=== PATIENT | female | born 1995 | race Caucasian/White ===

== ENCOUNTER → 2020-08-06 14:40 | Outpatient (BNVA) | payer BC, SELFPAY | PROVIDERS: PCP Physician Assistant; Referring Provider Nurse Practitioner Family; Visit Provider Podiatrist Foot & Ankle Surgery | DX: S92.425A Nondisplaced fracture of distal phalanx of left great toe, initial encounter for closed fracture (principal); X58.XXXA Exposure to other specified factors, initial encounter | CPT/HCPCS: 73630 ==

== ENCOUNTER 2021-10-14 16:37 | Inpatient (IN) | payer BC, MEDICAID, SELFPAY ==
[2021-10-14] VITALS (60 sets, daily range): BP systolic 119–175; BP diastolic 57–92; PULSE 61–129; RESP 17–18; TEMP 38.4; O2SAT 99–100; BMI 31.8
[2021-10-14 15:18] LABS: Bacteria Urine 1+ /hpf; Bilirubin Urine Neg (Negative); Blood Urine Neg (Negative); Glucose Urine UA Norm (Normal); Ketones Urine Negative (Negative); Leukocyte Esterase Urine Negative (Negative); Mucus Urine 1+ /hpf; Nitrate Urine Negative (Negative); Protein Urine Neg (Negative); RBC Urine 0-4 /hpf (0-2); Specific Gravity, Urine 1.015 (1.005-1.030); Squamous Epithelial Cell Urine 0-4 /hpf (0-5); Urine Appearance Clear (CLEAR); Urine Color Yellow (Yellow); Urobilinogen Urine Norm (Negative); WBC Urine 0-4 /hpf (0-5); pH Urine 7 (5-7)
[2021-10-14 15:19] LABS: Add Urine Culture? No; Amorphous Sediment Urine 1+ /hpf
[2021-10-14 16:16] LABS: Basophils # 0.1 10^3/uL (0.0-0.1); Basophils % 0.4 %; Eosinophils # 0.1 10^3/uL (0.0-0.8); Eosinophils % 0.6 %; Hematocrit 37.5 % (37.0-47.0); Hemoglobin 13.2 g/dL (11.5-15.3); Lymphocytes % 12.2 %; Mean Corpuscular HGB Conc 35.2 g/dL (30.0-36.0); Mean Corpuscular Hemoglobin 30.3 pg (28.0-34.0); Mean Corpuscular Volume 86.2 fl (81-99); Mean Platelet Volume 12.7 fL (7.4-10.4); Monocytes # 0.9 10^3/uL (0.2-0.9); Monocytes % 5.2 %; Neutrophils # 13.26 10^3/uL (1.8-7.7); Nucleated Red Blood Cells % 0 %; Platelet Count 225 10^3/cmm (130-400); Red Blood Count 4.35 10^6/uL (4.1-5.3); Red Cell Distribution Width 13.7 % (12.1-15.1); White Blood Count 16.4 10^3/uL (4.0-10.0)
[2021-10-14] MEDS: lactated ringers 1,000 ML 999 ML IV (16:40)
[2021-10-14 16:47] LABS: Alanine Aminotransferase 12 U/L (0-33); Albumin Level 3.7 g/dL (3.5-5.2); Alkaline Phosphatase 192 IU/L (35-105); Blood Urea Nitrogen 9 mg/dL (6-20); Calcium 10.2 mg/dL (8.5-10.5); Carbon Dioxide 21 mmol/L (22-29); Chloride 100 mmol/L (98-107); Globulin 3.7 g/dL (1.3-4.6); Glucose 73 mg/dL (65-115); Osmolality Calculated 277 mOsm/kg (285-295); Sodium 135 mmol/L (136-145); Total Bilirubin 0.2 mg/dL (0.15-1.2); Total Protein 7.4 g/dL (6.6-8.7); Uric Acid 4.5 mg/dL (2.4-5.7)
[2021-10-14 16:54] LABS: Anion Gap 18.2 (5-19); Aspartate Amino Transferase 20 U/L (0-32); Potassium 4.2 mmol/L (3.5-5.1)
--- NOTE | 2021-10-14 16:55 | ANES.PREANE2 ---
Pre-Anesthetic Assessment Height/Weight: Height 1.7 m Weight 92.079 kg Pulse Resp BP 87 18 143/79 10/14/21 16:51 10/14/21 16:30 10/14/21 16:51 Preop Diagnosis: labor pain epidural Familial anesthetic complications: none Was Beta Evaristo taken within 24 hours: N/A Was Clonidine taken within 24 hours: N/A Social No alcohol and No tobacco Exam alert, oriented x 3, clear to auscultation bilaterally and regular rate & rhythm Airway Submandibular: within normal limits Cervical ROM: within normal limits Mallampati: Class II Dentition: full History/ROS Other Pulmonary None reported CV/HEM None reported None reported Hepatic None reported GI Gastroesophageal Reflux Disease (Tums controls) Metabolic None reported Musc/skel None reported Neuropsych Anxiety and Depression Anesthetic Plan ASA status: 2 Anesthesia: Regional (specify below) Risk of > 500 ml blood loss (7ml/kg in children): No Medications/Allergies Home Medications Medication Instructions Recorded Confirmed Last Taken Type clotrimazole 1 % topical cream 1 applic TOPICAL .COMPLEX #45 g 07/13/21 07/13/21 Unknown Rx (Clotrimazole AF) Allergies Allergy/AdvReac Type Severity Reaction Status Date / Time Sulfa (Sulfonamide Allergy Unknown Verified 07/13/21 10:14 Antibiotics) Current Medications Generic Name Dose Route Start Last Admin Trade Name Freq PRN Reason Stop Dose Admin Lactated Ringer's 1,000 mls @ 999 mls/hr 10/14/21 16:32 10/14/21 16:40 Lactated Ringers IV 999 mls/hr .Q1H1M PRN Administration See label comments PFSH Anesthesia Family History Grandfather Cancer Lung disease Grandmother Cancer Grandfather Cancer Grandmother Cancer Father Clotting disorder Mother Hypertension Social History Smoking and tobacco status: former smoker Quit status (tobacco): not considering quitting Second hand smoke exposure: No Smoking risk assessment/counseling performed?: No Alcohol intake: current Desire information about alcohol rehabilitation?: No Counseling given: No Female Reproductive History : 1 Data Anesthesia : 10/14/21 15:27 10/14/21 15:27 Short CBC 10/14/21 Range/Units 15:27 WBC 16.4 H (4.0-10.0) 10^3/uL Hgb 13.2 (11.5-15.3) g/dL Hct 37.5 (37.0-47.0) % MCV 86.2 (81-99) fl Plt Count 225 (130-400) 10^3/cmm Neut % (Auto) 81.0 % Neut # (Auto) 13.26 H (1.8-7.7) 10^3/uL BMP 10/14/21 15:27 Sodium 135 L Potassium 4.2 Chloride 100 Carbon Dioxide 21 L BUN 9 Creatinine 0.7 Glucose 73 Calcium 10.2 Liver Function 10/14/21 Range/Units 15:27 Total Bilirubin 0.2 (0.15-1.2) mg/dL AST 20 (0-32) U/L ALT 12 (0-33) U/L Alkaline Phosphatase 192 H (35-105) IU/L Albumin 3.7 (3.5-5.2) g/dL Urine 10/14/21 Range/Units 12:45 Urine Color Yellow (Yellow) Urine Appearance Clear (CLEAR) Urine pH 7 (5-7) Ur Specific [place] 1.015 (1.005-1.030) Urine Protein Neg (Negative) Urine Glucose (UA) Norm (Normal) Urine Ketones Negative (Negative) Urine Nitrate Negative (Negative) Urine Bilirubin Neg (Negative) Ur Leukocyte Esterase Negative (Negative) Urine RBC 0-4 H (0-2) /hpf Urine WBC 0-4 H (0-5) /hpf Cardiac Studies: No Data to Display
--- NOTE | 2021-10-14 17:33 | P.ANES_ITS ---
Anesthesia Procedures Procedure/Date: 10/14/21 epidural Procedure Narrative: epidural complete, bolus given, epidural pump initiated with TELEGRAPH REPEATER INSTALLER education given, vitals taken during procedure using OBIX system and satisfactory throughout, patient admits to decrease pain, report of procedure to OB RN Epidural: Time Out Performed: Yes Consents Signed: Procedure Consent Consent: requested by attending/covering physician, from patient, risks and benefits reviewed and patient agrees to proceed Lumbar Level: L3-L4 Epidural position: sitting Epidural procedure: sterile prep of area, 1% lidocaine to numb the area (3 mL), 18 g needle, negative for paresthesia passed, neg for paresthesia, test dose given, 1.5% xylocaine 1:200k epi (5 mL), 0.2% Ropivacaine bolus ml (5 mL), placed PCEA, no systemic response, sterile dressing applied, L.U.D. no apparent complications and 0.2% Ropiavacaine @ mls/hr (13 mL/hr)
[2021-10-14 17:43] LABS: Urine Creatinine 78 mg/dL (28-217); Urine Protein Random 13 mg/dL
[2021-10-14 17:52] LABS: UPRO/UCREAT Ratio 0.17 mg/mg CR
[2021-10-14] MEDS: dextrose 5%-lactated ringers 1,000 ML 125 ML IV (18:36)
[2021-10-14] MEDS: ondansetron 2 mg/ML SDV 2 mL 4 MG IVP (20:13)
[2021-10-14] MEDS: oxytocin 30 UNIT/500 ML BAG 600 UNIT IV (21:40)
--- NOTE | 2021-10-14 21:58 | P.HPUD_ITS ---
Labor & Delivery H&P Update Date of Procedure: October 14, 2021 Date H&P Performed: 10/14/21 Changes to previous documentation: Upon arrival the patient was edna every 2 to 3 minutes. Her cervix was unchanged initially. Admission Diagnosis: 26-year-old 1 at 40 weeks estimated gestational age Preop diagnosis: labor pain Planned procedure: Continuous vaginal delivery Other information: The mother had a relatively unremarkable . She did have a history of herpes simplex. She was on valacyclovir for the final month of her . She did have questionable lesions earlier in her , but none during last month of her . Otherwise her labs were within normal limits. Her blood type is a positive. Her antibody screen was negative. She is rubella immune. She is GBS negative. She failed her first glucose screen, but passed her 3-hour glucose screen. The remainder of her infectious disease panel was within normal limits. There were no other concerns. Related Problem List Diagnoses (1) 40 weeks gestation of : A&P Medication Management * All medications have been reviewed for disease state management, side effects, interactions, or complications. * Patient medication history and treatment plan has been reviewed. Based on recommendation from [] and my own review, I am prescribing [] for patient. * Prescription e-prescribed to [] Assessment & Plan (1) 40 weeks gestation of : Assessment & Plan: I anticipate routine labor and spontaneous vaginal delivery. Status: Acute Code(s): Z3A.40 - 40 weeks gestation of Assessment & Plan: * All medications have been reviewed for disease state management, side effects, interactions, or complications. * Patient medication history and treatment plan has been reviewed. Based on recommendation from [] and my own review, I am prescribing [] for patient. * Prescription e-prescribed to []
--- NOTE | 2021-10-14 22:01 | P.PCNOB_ITS ---
Delivery Note: Date of delivery: October 14, 2021 Pre-delivery diagnoses: 26-year-old 1 40-week EGA female in active labor Post-delivery diagnoses: Status post spontaneous vaginal delivery Procedure: Spontaneous vaginal delivery Estimated blood loss (mL): 200 Delivery: DELIVERY: The patient progressed to complete without difficulty. She delivered a female with a weight of 6 pounds 11 ounces with Apgars of 9, 10. The baby was delivered from the AKOSUA positionand placed on the mother's abdomen. The cord was then clamped and cut. There was no nuchal cord. There was no meconium. The placenta and 3 vessel cord were delivered intact shortly thereafter. The perineum and vaginal vault were carefully examined. A first- degree posterior right sided vaginal wall tear was noted. It was not bleeding. Repair was not indicated. Both the mother and the baby were in stable condition . Post-Delivery Status: Good A&P Assessment and plan (1) Spontaneous vaginal delivery: Anticipate routine care. Status: Acute (2) 40 weeks gestation of : Status: Acute Coding Level of Care Code Acute Home Energy Consultant for Chg Fwd Diagnoses Spontaneous vaginal delivery O80 40 weeks gestation of Z3A.40
[2021-10-14] MEDS: lanolin oint 7 gm 1 APPLIC TOPICAL (23:56)
[2021-10-14] MEDS: benzocaine-menthol 78 gm Canister 1 SPRAY TOPICAL (23:56)
[2021-10-14] MEDS: acetaminophen 500 mg Tablet 1000 MG PO (23:56)
[2021-10-14] MEDS: ibuprofen 800 mg tablet PO (23:56)
[2021-10-15] VITALS (13 sets, daily range): BP systolic 110–147; BP diastolic 69–96; PULSE 58–89; RESP 16; TEMP 36.6–37; O2SAT 96–99
--- NOTE | 2021-10-15 03:32 | PC.NURSE ---
Patient missed urine hat and voided in toilet
--- NOTE | 2021-10-15 06:57 | PM.OBGYDC ---
Discharge Providers ORACLE DATABASE ADMINISTRATOR Date of Admission: 10/14/21 16:37 Date of Discharge: 10/20/21 Attending Provider at Admission: Ramsey Goodwin MD Attending Provider at Discharge: Ramsey Goodwin MD Primary Care Provider: Ramsey Goodwin Diagnoses at Discharge Discharge Diagnosis (1) Spontaneous vaginal delivery: Status: Resolved (2) 40 weeks gestation of : Status: Resolved Reason for Visit Reason for Visit: Contractions Hospital Course Hospital Course The patient presented to the hospital for induction due to postdates. Please refer to labor and delivery report for details. She did have some elevated blood pressures intermittently. But her preeclamptic panel was within normal limits. Her related blood pressures resolved prior to delivery. Her delivery was unremarkable. Her course was also unremarkable. Her bleeding was within normal limits. She breast-fed well. There were no concerns. Information Peripartum Data: Delivery Method: Vaginal Physical Exam Narrative: The patient is alert. She appears comfortable. Her heart has a regular rate and rhythm with no murmurs appreciated. Lungs are clear to auscultation bilaterally. Her fundus is firm and below the umbilicus. Urinary Catheter Management: Singer: Cath Placed During This Visit: yes Reason for Continuing Indwelling Catheter: Required Immobilization for Trauma or Surgery or Anesthesia Urinary Catheter Date of Insertion: 10/14/21 Urinary Catheter Time of Insertion: 18:25 Discharge Data Studies Completed and Pending Pending at discharge Category Date Time Status Hemagram Timed Lab 10/15/21 10:04 Uncollected Laboratory Results WBC 16.4 10^3/uL (4.0-10.0) H 10/14/21 15: RBC 4.35 10^6/uL (4.1-5.3) 10/14/21 15:27 Hgb 13.2 g/dL (11.5-15.3) 10/14/21 15: Hct 37.5 % (37.0-47.0) 10/14/21 15: MCV 86.2 fl (81-99) 10/14/21 15:27 MCH 30.3 pg (28.0-34.0) 10/14/21 15: MCHC 35.2 g/dL (30.0-36.0) 10/14/21 15: RDW 13.7 % (12.1-15.1) 10/14/21 15: Plt Count 225 10^3/cmm (130-400) 10/14/21 15: MPV 12.7 fL (7.4-10.4) H 10/14/21 15: Neut % (Auto) 81.0 % 10/14/21 15: Lymph % (Auto) 12.2 % 10/14/21 15: [place] % (Auto) 5.2 % 10/14/21 15: Eos % (Auto) 0.6 % 10/14/21 15: Baso % (Auto) 0.4 % 10/14/21: Neut # (Auto) 13.26 10^3/uL (1.8-7.7) H 10/14/21: Lymph # (Auto) 2.0 10^3/uL (0.8-4.8) 10/14/21: [place] # (Auto) 0.9 10^3/uL (0.2-0.9) 10/14/21: Eos # (Auto) 0.1 10^3/uL (0.0-0.8) 10/14/21: Baso # (Auto) 0.1 10^3/uL (0.0-0.1) 10/14/21: Nucleated RBC % (auto) 0 % 10/14/21: Nucleated RBCs # 0.0 /100WBC 10/14/21 15: Sodium 135 mmol/L (136-145) L 10/14/21: Potassium 4.2 mmol/L (3.5-5.1) 10/14/21 15: Chloride 100 mmol/L (98-107) 10/14/21: Carbon Dioxide 21 mmol/L (22-29) L 10/14/21: Anion Gap 18.2 (5-19) 10/14/21 15: BUN 9 mg/dL (6-20) 10/14/21 15: Creatinine 0.7 mg/dL (0.5-0.9) 10/14/21 15: GFR Calculation 102.0 mL/min (90-130) 10/14/21: Glucose 73 mg/dL (65-115) 10/14/21 15: Calculated Osmolality 277 mOsm/kg (285-295) L 10/14/21 15: Uric Acid 4.5 mg/dL (2.4-5.7) 10/14/21 15: Calcium 10.2 mg/dL (8.5-10.5) 10/14/21 15: Total Bilirubin 0.2 mg/dL (0.15-1.2) 10/14/21 15: AST 20 U/L (0-32) 10/14/21 15: ALT 12 U/L (0-33) 10/14/21 15: Alkaline Phosphatase 192 IU/L (35-105) H 10/14/21 15: Total Protein 7.4 g/dL (6.6-8.7) 10/14/21 15: Albumin 3.7 g/dL (3.5-5.2) 10/14/21: Globulin 3.7 g/dL (1.3-4.6) 10/14/21 15: Urine Color Yellow (Yellow) 10/14/21 12:45 Urine Appearance Clear (CLEAR) 10/14/21 12:45 Urine pH 7 (5-7) 10/14/21 12:45 Ur Specific [place] 1.015 (1.005-1.030) 10/14/21 12:45 Urine Protein Neg (Negative) 10/14/21 12:45 Urine Glucose (UA) Norm (Normal) 10/14/21 12:45 Urine Ketones Negative (Negative) 10/14/21 12:45 Urine Blood Neg (Negative) 10/14/21 12:45 Urine Nitrate Negative (Negative) 10/14/21 12:45 Urine Bilirubin Neg (Negative) 10/14/21 12:45 Urine Urobilinogen Norm mg/dL (Negative) 10/14/21 12:45 Ur Leukocyte Esterase Negative (Negative) 10/14/21 12:45 Urine RBC 0-4 /hpf (0-2) H 10/14/21 12:45 Urine WBC 0-4 /hpf (0-5) H 10/14/21 12:45 Ur Squamous Epith Cells 0-4 /hpf (0-5) H 10/14/21 12:45 Amorphous Sediment 1+ /hpf 10/14/21 12:45 Urine Bacteria 1+ /hpf (NONE) H 10/14/21 12:45 Urine Mucus 1+ /hpf 10/14/21 12:45 U Random Total Protein 13 mg/dL 10/14/21 12:45 Urine Creatinine 78 mg/dL (28-217) 10/14/21 12:45 Protein/Creatinin Ratio 0.17 mg/mg CR 10/14/21 12:45 Vitals Last Vital Signs Temp 98.6 F 10/15/21 02:45 Pulse 82 10/15/21 02:45 Resp 18 10/14/21 16:30 BP 120/69 10/15/21 02:45 Pulse Ox 97 10/15/21 02:45 Discharge Plan Discharge Patient Disposition: Home Condition: Stable Prescriptions: New ibuprofen 800 mg Tablet 800 mg PO TID Qty: 45 0RF No Action valacyclovir 1 gram tablet 1,000 mg PO DAILY 0RF sertraline 100 mg tablet 100 mg PO DAILY 0RF Discharge Orders: Discharge Order (Routine); Ordered 10/15/21 Ordered By: Ramsey Goodwin Referrals: Ramsey Goodwin MD [Physician] - 11/17/21 2:30 pm Discharge Diet: Usual diet Discharge Activity: Limit activity as instructed Patient Instructions: Depression (DC), Bleeding (DC), Preeclampsia and Eclampsia After Delivery (GEN), OB Discharge Report, OB Food/Drug Interaction Guide, OB Care at Home, Opioid Safety, OB Home Care, OB Vaginal Deliveries, Abnormal Bleeding Discharge Attestations ORACLE DATABASE ADMINISTRATOR Time Spent in Discharge Care*: greater than 30 min Coding Level of Care Code Acute Sales Technician Home Theater for Chg Fwd Diagnoses Spontaneous vaginal delivery O80 40 weeks gestation of Z3A.40
--- NOTE | 2021-10-15 09:43 | ANE.PACU2 ---
Inpatient post-anesthesia follow up: Airway intact: Yes Vital signs: Temperature 98.2 F Pulse Rate 58 Respiratory Rate 18 Blood Pressure 135/85 Pulse Oximetry 96 Oxygen Delivery Me thod Room Air Oxygen Flow Rate Fraction of Inspir ed Oxygen Hydration adequate: Yes Nausea and vomiting: No Pain level: 2 Mental status: Baseline
[2021-10-15] MEDS: ibuprofen 800 mg tablet PO ×3 (10:02→21:25)
[2021-10-15] MEDS: docusate sodium 100 mg Capsule PO ×2 (10:02→21:26)
[2021-10-15] MEDS: prenatal vitamin Capsule 1 CAP PO (10:02)
[2021-10-15 10:40] LABS: Hematocrit 34.4 % (37.0-47.0); Hemoglobin 11.9 g/dL (11.5-15.3); Mean Corpuscular HGB Conc 34.6 g/dL (30.0-36.0); Mean Corpuscular Hemoglobin 30.1 pg (28.0-34.0); Mean Corpuscular Volume 87.1 fl (81-99); Mean Platelet Volume 11.9 fL (7.4-10.4); Platelet Count 202 10^3/cmm (130-400); Red Blood Count 3.95 10^6/uL (4.1-5.3); Red Cell Distribution Width 14.3 % (12.1-15.1); White Blood Count 19.3 10^3/uL (4.0-10.0)
== END 2021-10-15 22:52 | disposition home or self-care (01) | DRG 807 ==
LOC: OPOB 10-22 10:28
PROVIDERS: Admitting Provider Family Medicine; PCP Physician Assistant; Visit Provider Family Medicine
DX: O48.0 Post-term pregnancy (principal); Z37.0 Single live birth; Z3A.40 40 weeks gestation of pregnancy
CPT/HCPCS: 12345; 36415; 51702; 59025; 59409; 80053; 81001; 82570; 84156; 84550; 85025; 85027; 99211; J2405; J2795

== ENCOUNTER → 2022-03-07 11:38 | Outpatient (BNVA) | payer BC, SELFPAY | PROVIDERS: PCP Family Medicine; Visit Provider Emergency Medicine | DX: J02.9 Acute pharyngitis, unspecified (principal) | CPT/HCPCS: 87071; 87880 ==

== ENCOUNTER → 2024-08-24 13:30 | Outpatient (BNVA) | payer OTHER, SELFPAY | PROVIDERS: PCP Family Medicine; Visit Provider Nurse Practitioner | DX: R39.9 Unspecified symptoms and signs involving the genitourinary system (principal) | CPT/HCPCS: 81000; 87086 ==

== ENCOUNTER → 2024-08-27 16:15 | Outpatient (BNVA) | payer OTHER, SELFPAY | PROVIDERS: PCP Family Medicine | DX: N89.8 Other specified noninflammatory disorders of vagina (principal) | CPT/HCPCS: 81513; 87481; 87491; 87591; 87661 ==

== ENCOUNTER → 2024-08-28 14:02 | Outpatient (BNVA) | payer OTHER, SELFPAY | PROVIDERS: PCP Family Medicine; Visit Provider Nurse Practitioner | DX: N76.0 Acute vaginitis (principal) | CPT/HCPCS: 81513; 87481; 87491; 87591; 87661 ==